=== PATIENT | male | born 1940 | race Caucasian/White ===

== ENCOUNTER 2017-05-26 10:09 | Observation (INO) | payer OTHER ==
[~2017-05-26] VITALS: Ht 182.9 cm; Wt 89.1 kg
--- NOTE | ~2017-05-26 | HC ---
[facility] [place] [address] CONSULTATION Name: JORDAN ROWE Room #: 215-P [facility]#: [id number] Admission: 05/26/17 Attend Phys: Keith Solis MD Discharge: Date of : 36 Report #: [id number] THIS REPORT FOR: //name// CC: Micah Solis DATE OF SERVICE: 05/26/2017 INDICATION: Syncope. HISTORY OF PRESENT ILLNESS: This is a 76-year-old gentleman presenting with an episode of syncope, which occurred at his resident at [facility]. Briefly, this is a 76-year-old gentleman with a past medical history significant for hypertension, hypercholesterolemia, chronic back pain, and gait instability. Recently, he has had issues with falls attributed to generalized weakness and gait instability. He has been using a walker for assistance with ambulation. This morning, after taking a shower, he felt somewhat lightheaded and disoriented. He was still able to dry off with a towel and put his cloths on. He walked into his room and sat down in a chair. According to the report, he passed out for approximately 5 minutes. The patient denies any episodes of angina, dyspnea, palpitations, or congestion. There is no recent history of fever, chills, or cough. PAST MEDICAL HISTORY: Hypertension, hypercholesterolemia, chronic back pain, and gait instability with falls. MEDICATIONS: Include amlodipine 5 mg daily, aspirin once a day, lisinopril 20 mg daily, oxycodone for pain, Inderal 60 mg 3 times a day, simvastatin 20 mg and trazodone. ALLERGIES: Include KEFLEX and BUSPAR. SOCIAL HISTORY: Negative for tobacco use. FAMILY HISTORY: Negative for premature CAD. REVIEW OF SYSTEMS: A full 10-point review of systems performed. Only the pertinent positives and negatives are described in the HPI. PHYSICAL EXAMINATION: VITAL SIGNS: Blood pressure is 110/60, heart rate is 65 beats per minute. GENERAL APPEARANCE: This is an elderly appearing male, in no acute respiratory distress. HEAD AND EYES: Normocephalic, atraumatic. ENT: Oral mucosa moist. NECK: Supple. No JVD. [address] [address] CONSULTATION Name: JORDAN ROWE Room #: 215-P [facility].#: [id number] Admission: 05/26/17 Attend Phys: Keith Solis MD Discharge: Date of : 36 Report #: [id number] LUNGS: Clear to auscultation. No crackles. CARDIAC: S1, S2 positive. ABDOMEN: Soft, nontender. Bowel sounds positive. EXTREMITIES: Normal range of motion, nontender. NEUROLOGIC: Awake and alert, nonfocal. SKIN: No rashes. ECG reveals sinus rhythm, otherwise unremarkable. LABORATORY VALUES: White count is 12.9, hemoglobin is 12.5. Sodium is 133, creatinine is 1.2. Troponin is negative. Echocardiogram reveals normal LV systolic function. ASSESSMENT AND PLAN: 1. Syncope, the differential diagnosis includes orthostatic hypotension, autonomic dysfunction, vasovagal, etc. Doubt if this is ischemia related. Continue with conservative therapy, including telemetry monitoring. The patient will require orthostatic blood pressure measurements. 2. Hypertension. The blood pressure is on the low side. I would hold his antihypertensive medications for now. 3. Hypercholesterolemia, continue with statin. 4. Chronic pain syndrome, continue with pain medications. Thank you for allowing me to participate in the care of your patient. <ELECTRONICALLY SIGNED> By: Nam Catherine MD 05/27/17 0746 [id number] [id number] Nam Catherine MD /nt
--- NOTE | ~2017-05-26 | EKG ---
[address] [address] ELECTROCARDIOGRAM REPORT Name: JORDAN ROWE Room #: 215-[facility]..#: [id number] Admission: 05/26/17 Attend Phys: Keith Solis MD Discharge: Date of : 36 Report #: [id number] THIS REPORT FOR: //name// [facility] ED Test Date: 2017-05-26 Test Time: 10:09:06 Pat Name: JORDAN ROWE Department: Room: [facility] Gender: M Line Supply: NADEGE : 1940 Requested By: Molly Flores Order Number: [id number] MD: John Davies Measurements Intervals [place] Rate: 57 P: 22 IN: 199 QRS: -18 QRSD: 87 T: 23 QT: 432 QTc: 421 Interpretive Statements Sinus rhythm Borderline left axis deviation No previous ECG available for comparison Electronically Signed On 05-27-2017 7:49:21 CDT by John Davies [email or web address] <ELECTRONICALLY SIGNED> By: John Davies MD, [facility] 05/27/17 0749 1009 1009 John Davies MD, FACC /EPI
--- NOTE | ~2017-05-26 | 2DMMODE ---
[facility] [address] [facility] [place] [address] 2 D/M-MODE ECHOCARDIOGRAM Name: JORDAN ROWE Room #: 215-P ADM IN M.R.#: [id number] Admission: 05/26/17 Attend Phys: Keith Solis, Discharge: Date of : 36 Date of Service: 05/26/17 1613 Report #: [id number] THIS REPORT FOR: //name// APPROVED REPORT Study performed: 05/26/2017 13:26:30 EXAM: Comprehensive 2D, Doppler, and color-flow Echocardiogram Patient Location: Echo lab Room #: 215 Status: routine Other Information Study Quality: Adequate Indications Syncope 2D Dimensions RVDd: 36.25 mm LVEF(%): 50.28 (>50%) IVSd: 11.31 (7-11mm) LVOT Diam: 22.16 (18-24mm) LVDd: 43.99 mm PWd: 11.11 (7-11mm) LVDs: 32.83 (25-40mm) Aortic Root: 36.02 mm IVC: 2.50 mm Lacey's LVEF: 50.28 % Volumes Left Atrial Volume (Systole) Single Plane 4CH: 55.36 mL Single Plane 2CH: 45.07 mL LA ESV Index: 26.00 mL/m2 Aortic Valve AoV Peak Bennie.: 1.41 m/s AO Peak Gr.: 8.23 mmHg LVOT Max P.88 mmHg LVOT Max V: 1.10 m/s SONDRA Vmax: 3.02 cm2 Mitral Valve E/A Ratio: 0.6 MV Decel. Time: 377.45 ms MV E Max Bennie.: 0.52 m/s MV A Bennie.: 0.91 m/s MV PHT: 109.46 ms IVRT: 115.34 ms [facility] [place] [address] 2 D/M-MODE ECHOCARDIOGRAM Name: JORDAN ROWE Room #: 215-P [facility] IN .R.#: [id number] Admission: 05/26/17 Attend Phys: Keith Solis, Discharge: Date of : 36 Date of Service: 05/26/17 1613 Report #: [id number] Pulmonary Valve PV Peak Bennie.: 1.22 m/s PV Peak Gr.: 5.93 mmHg Pulmonary Vein P Vein S: 0.54 m/s P Vein A: 0.28 m/s P Vein D: 0.35 m/s P Vein A Dur.: 126.9 msec P Vein S/D Ratio: 1.54 Tricuspid Valve TR Peak Bennie.: 2.69 m/s RAP Estimate: 10.00 mmHg TR Peak Gr.: 29.05 mmHg PA Pressure: 39.00 mmHg Left Ventricle The left ventricle is normal size. There is normal LV segmental wall motion. There is normal left ventricular wall thickness. The left ventricular systolic function is normal. The left ventricular ejection fraction is within the normal range. LVEF is 50-55%. Grade I - abnormal relaxation pattern. Right Ventricle The right ventricle is normal size. The right ventricular systolic function is normal. Atria The left atrium size is normal. The right atrium size is normal. Aortic Valve The aortic valve is normal in structure. Mild aortic regurgitation. There is no aortic valvular stenosis. Mitral Valve The mitral valve is normal in structure. Trace mitral regurgitation. No evidence of mitral valve stenosis. Tricuspid Valve The tricuspid valve is normal in structure. There is trace tricuspid regurgitation. The right atrial pressure is estimated at 10 mmHg. There is mild pulmonary hypertension with an estimated PAP of 39 mmHg. Pulmonic Valve The pulmonary valve is normal in structure. Trace pulmonic regurgitation. [address] [address] 2 D/M-MODE ECHOCARDIOGRAM Name: JORDAN ROWE Room #: 215-P [facility] IN [facility]#: [id number] Admission: 05/26/17 Attend Phys: Keith Solis, Discharge: Date of : 36 Date of Service: 05/26/17 1613 Report #: [id number] Great Vessels The aortic root is normal in size. IVC is dilated. Pericardium There is no pericardial effusion. <Conclusion> The left ventricle is normal size. The left ventricular systolic function is normal. Grade I - abnormal relaxation pattern. The right ventricle is normal size. The left atrium size is normal. The right atrium size is normal. Mild aortic regurgitation. Trace mitral regurgitation. There is trace tricuspid regurgitation. The right atrial pressure is estimated at 10 mmHg. There is mild pulmonary hypertension with an estimated PAP of 39 mmHg. <ELECTRONICALLY SIGNED> By: Nam Catherine MD 05/26/17 1613 1613 1613 Nam Catherine MD /INF
[~2017-05-26 10:09] MED LIST: ASPIR 8181 MG PO; ATIVAN1 MG PO; LISINOPRIL20 MG PO; LOPERAMIDE 2 MG2 M1 PO; MIRALAX17 GM PO; NORVASC5 MG PO; PERCOCET 5-3251 EACH PO; PROPRANOLOL 1010 MG PO; TRAZODONE HCL100 MG PO; WELLBUTRIN XL300 MG PO; ZOCOR20 MG PO; ZOFRAN ODT4 MG PO
[2017-05-26 10:10] VITALS: BP 108/64
[2017-05-26] MEDS ORDERED: NORVASC5 MG PO (10:28)
[2017-05-26] MEDS ORDERED: WELLBUTRIN XL300 MG PO (10:29)
[2017-05-26] MEDS ORDERED: PRINIVIL20 MG PO (10:29)
[2017-05-26] MEDS ORDERED: ASPIRIN81 M2 PO (10:29)
[2017-05-26 10:30] LABS: HEMATOCRIT 35.9 % (42.0-52.0); HEMOGLOBIN 12.5 gm/dL (14.0-18.0); MCH 32.8 pg (26.0-34.0); MCHC 34.8 g/dL (28.0-37.0); MCV 94.2 fL (80.0-100.0); PLATELET COUNT 313 thou/uL (150-400); RBC 3.81 mil/uL (4.50-6.00); RDW 12.1 % (10.5-14.5); WBC 12.9 thou/uL (4.0-11.0)
[2017-05-26] MEDS ORDERED: PERCOCET PO (10:30)
[2017-05-26] MEDS ORDERED: ICAPS PLUS PO (10:30)
[2017-05-26] MEDS ORDERED: INDERAL60 MG PO (10:31)
[2017-05-26] MEDS ORDERED: ZOCOR20 MG PO (10:32)
[2017-05-26] MEDS ORDERED: TRAZODONE HCL100 MG PO (10:32)
[2017-05-26] MEDS ORDERED: MIRALAX17 GM PO (10:32)
[2017-05-26] MEDS ORDERED: TYLENOL325 MG PO (10:33)
[2017-05-26 10:37] LABS: ANION GAP 9 mmol/L (7-16); BUN 21 mg/dL (7-18); CALCIUM 9.4 mg/dL (8.5-10.1); CHLORIDE 101 mmol/L (98-107); CO2 23 mmol/L (21-32); CREATININE 1.2 mg/dL (0.7-1.3); GLUCOSE 137 mg/dL (74-106); POTASSIUM 4.9 mmol/L (3.5-5.1); SODIUM 133 mmol/L (136-145)
[2017-05-26 10:39] LABS: MANUAL DIFF YES
[2017-05-26 10:45] LABS: ALBUMIN 2.6 g/dL (3.4-5.0); ALKALINE PHOSPHATASE 153 U/L (46-116); SGOT 98 U/L (15-37); SGPT 116 U/L (30-65); TOTAL BILIRUBIN 1.3 mg/dL (<0.1-1.0); TOTAL PROTEIN 7.7 g/dL (6.4-8.2); TROPONIN-I < 0.04 ng/mL (<0.04-0.07)
[2017-05-26 11:06] LABS: ABSOLUTE NEUTROPHILS 9.9 thou/uL (1.4-8.2); PLATELET ESTIMATE NORMAL; TOTAL CELL COUNT 100
[2017-05-26 11:48] LABS: URINE BILIRUBIN NEGATIVE (Negative); URINE BLOOD TRACE (Negative); URINE COLOR YELLOW; URINE GLUCOSE-RANDOM* NEGATIVE (Negative); URINE KETONES NEGATIVE (Negative); URINE NITRITE NEGATIVE (Negative); URINE PROTEIN (DIPSTICK) 1+ (Negative); URINE SPECIFIC GRAVITY 1.025 (1.003-1.035); URINE UROBILINOGEN >= 8.0 E.U./dl (0.2-1.0)
[2017-05-26 11:54] LABS: SQUAMOUS 0-3 Few /LPF (0-3); URINE RBC 3-10 Few /HPF (0-2)
[2017-05-26 11:55] LABS: AMORPHOUS URATES Few /LPF (None Seen); BACTERIA 1-9 Few /HPF (None Seen); CASTS None Seen /LPF (None Seen); URINE WBC 0-5 Rare /HPF (0-5)
[2017-05-26 14:26] VITALS: BP 120/58
[2017-05-26 17:31] VITALS: BP 119/61
[2017-05-26 18:01] LABS: FOLIC ACID 15.3 ng/mL (8.6-58.9); TSH 0.788 uIU/mL (0.358-3.740)
[2017-05-26 19:48] VITALS: BP 123/74
[2017-05-26 23:13] VITALS: BP 105/58
[2017-05-27 03:06] LABS: HEMATOCRIT 32.3 % (42.0-52.0); HEMOGLOBIN 11.1 gm/dL (14.0-18.0); MCH 32.7 pg (26.0-34.0); MCHC 34.6 g/dL (28.0-37.0); MCV 94.8 fL (80.0-100.0); RBC 3.4 mil/uL (4.50-6.00); RDW 12.2 % (10.5-14.5); WBC 11.5 thou/uL (4.0-11.0)
[2017-05-27 03:09] LABS: CALCIUM 8.4 mg/dL (8.5-10.1); POTASSIUM 4.2 mmol/L (3.5-5.1)
[2017-05-27 03:13] VITALS: BP 106/62
[2017-05-27 04:09] LABS: GLYCOHEMOGLOBIN (HGB A1C) 5.2 % (4.8-5.6)
[2017-05-27 05:11] LABS: FREE T4 1.5 ng/dL (0.82-1.77); PROLACTIN 42.6 ng/mL (4.0-15.2)
[2017-05-27 07:29] VITALS: BP 133/71
[2017-05-27 11:32] VITALS: BP 129/70
[2017-05-27 14:59] VITALS: BP 129/70
[2017-05-27 15:53] VITALS: BP 129/70
== END 2017-05-27 16:17 ==
LOC: ER 10:09 → 2N 12:15 → EROBS 12:15 → 2N 13:20
PROVIDERS: Internal Medicine; Physician Assistant; Psychiatry & Neurology Neurology
DX: R55 Syncope and collapse (principal); D72.829 Elevated white blood cell count, unspecified; I10 Essential (primary) hypertension; E78.5 Hyperlipidemia, unspecified; G89.4 Chronic pain syndrome; R74.8 Abnormal levels of other serum enzymes; Z88.8 Allergy status to other drugs, medicaments and biological substances; Z79.82 Long term (current) use of aspirin; Z79.899 Other long term (current) drug therapy